=== PATIENT | male | born 1980 | race African-American/Black ===

== ENCOUNTER 2017-04-15 17:57 | Emergency (ER) | payer OTHER ==
[~2017-04-15] VITALS: Ht 177.8 cm; Wt 77.1 kg
--- NOTE | 2017-04-15 18:30 | NUR ---
PRESENTS TO ER C/O UNCONTROLLED BLOOD SUGAR AND PENILE ULCER. PATIENT IS A/OX 4. BREATHING EVEN AND UNLABORED. NO SOB. VITALS STABLE. SAFETY AND COMFORT MEASURES IN PLACE. UMESH Parson. INFORMED. BJ PANTOJA AT BEDSIDE FOR EVAL.
[2017-04-15] MEDS ORDERED: ONDANSETRON HCL/PF 4 MG/2 ML VIAL ONE (19:00)
[2017-04-15] MEDS ORDERED: HYDROMORPHONE 1 MG/1 ML DISP.SYRIN IV ONE (19:00)
[2017-04-15] MEDS ORDERED: IV NS 0.9% 1,000 ML BAG IV ONE (19:00)
[2017-04-15] MEDS ORDERED: ONDANSETRON HCL/PF 4 MG/2 ML VIAL IV ONE (19:00)
[2017-04-15] MEDS ORDERED: MORPHINE SULFATE INJ 4 MG/ML DISP.SYRIN ONE (19:01)
--- NOTE | 2017-04-15 19:05 | NUR ---
NEW IV STARTED ON LAC, 18 G. BLOOD DRAWN AND SENT TO LAB.
[2017-04-15 19:15] LABS: BASOPHILS % (AUTO) 0.1 % (0.0-2.0); EOSINOPHILS % (AUTO) 0.2 % (0.0-6.0); HEMATOCRIT 43 % (39-51); HEMOGLOBIN 14.7 g/dL (13.5-17.5); LYMPHOCYTES # (AUTO) 1.3 /CMM (0.8-4.8); LYMPHOCYTES % (AUTO) 13.5 % (20.0-44.0); MEAN CORPUSCULAR HEMOGLOBIN 31 PG (26.0-33.0); MEAN CORPUSCULAR HGB CONC 34 g/dl (31.0-36.0); MEAN CORPUSCULAR VOLUME 91 fL (80-96); MONOCYTES # (AUTO) 0.6 /CMM (0.1-1.30); MONOCYTES % (AUTO) 6.5 % (2.0-12.0); NEUTROPHILS # (AUTO) 7.6 /CMM (1.8-8.9); NEUTROPHILS % (AUTO) 79.7 % (43.0-81.0); PLATELET COUNT (AUTO) 259 /CMM (150-450); RDW COEFFICIENT OF VARIATION 11.5 (11.5-15.0); RED BLOOD CELL COUNT(AUTO) 4.71 MIL/uL (4.5-6.0); WHITE BLOOD COUNT (AUTO) 9.5 K/uL (4.3-11.0)
[2017-04-15] MEDS ORDERED: FENTANYL PF 100MCG/2ML AMPUL ONE (19:30)
[2017-04-15] MEDS ORDERED: MORPHINE SULFATE INJ 10 MG/ML DISP.SYRIN IV ONE (19:30)
[2017-04-15] MEDS ORDERED: FENTANYL PF 100MCG/2ML AMPUL IV ONE (19:30)
--- NOTE | 2017-04-15 19:33 | NUR ---
REPORT GIVEN TO DAMIEN DRISCOLL FOR ZENY.
--- NOTE | 2017-04-15 19:34 | NUR ---
REPORTED RECEIVED FROM SARKIS. DRISCOLL FOR ZENY.
[2017-04-15 19:35] LABS: ALBUMIN 3.7 g/dL (3.4-5.0); BILIRUBIN,DIRECT 0.1 mg/dL (0.0-0.2); BILIRUBIN,TOTAL 0.7 mg/dL (0.2-1.0); CALCIUM, SERUM 9.3 mg/dL (8.5-10.1); POTASSIUM 3.7 mmol/L (3.5-5.1); TOTAL PROTEIN, SERUM 7.7 g/dL (6.4-8.2)
[2017-04-15 20:21] LABS: APPEARANCE,URINE Clear (CLEAR); BILIRUBIN,URINE Negative (NEGATIVE); BLOOD, URINE Trace-intact Ery/uL (NEGATIVE); COLOR,URINE Yellow (YELLOW); KETONES,URINE 40 (NEGATIVE); LEUKOCYTE ESTERASE ,URINE Negative (NEGATIVE); NITRITE, URINE Negative (NEGATIVE); PH,URINE 5.5 (5.0-8.0); PROTEIN,URINE Negative (NEGATIVE); UGLUCOSE 500 MG/DL mg/dL (NEGATIVE); UROBILINOGEN,URINE 0.2 EU/dL (0.2)
[2017-04-15] MEDS ORDERED: CEFTRIAXONE 1 G in IV D5W 50 ML IV ONE (20:30)
[2017-04-15] MEDS ORDERED: SULFAMETH/TRIMETH 800/160 MG 1 UDTAB TABLET PO ONE ×2 (20:30→20:36)
[2017-04-15] MEDS ORDERED: INSULIN REGULAR, HUMAN 100 UNIT/ML 10 ML VIAL SQ ONE (20:30)
[2017-04-15 20:34] LABS: BACTERIA,URINE Rare /HPF (None Seen); SQUAMOUS EPITHELIAL CELL,UR Few /HPF (None Seen); WBC,URINE NONE SEEN /HPF (0-3)
[2017-04-15] MEDS ORDERED: CEFTRIAXONE 1GM BAG (ER ONLY) 50 ML IV ONE (20:35)
[2017-04-15] MEDS ORDERED: INSULIN REGULAR, HUMAN 100 UNIT/ML 10 ML VIAL ONE (20:36)
--- NOTE | 2017-04-15 22:04 | NUR ---
IV removed. Catheter intact and site benign. Pressure and 4x4 applied to site. No bleeding noted. Patient teaching administered on leg bag for urinary catheter. Patient to see urologist next week. Patient discharged to home in stable condition. Written and verbal after care instructions given. Patient verbalizes understanding of instruction. Patient ambulatory with a steady gait.
[2017-04-15 22:06] VITALS: BP 138/79
== END 2017-04-15 22:07 | disposition home or self-care (01) ==
LOC: EDBD → ER 18:03
DX: N47.6 Balanoposthitis (principal); N48.5 Ulcer of penis; E10.65 Type 1 diabetes mellitus with hyperglycemia; R82.4 Acetonuria; F17.200 Nicotine dependence, unspecified, uncomplicated
CPT/HCPCS: 36415; 80048; 80076; 81001; 82962; 83605; 85025; 87040 ×2; 96361; 96365; 96372; 96375; 99285; A4606; J0696 ×2; J1815; J2270; J2405; J3010; J7030; J7060; Z7610; 81000-TC

== ENCOUNTER 2017-04-19 08:38 | Emergency (ER) | payer OTHER ==
--- NOTE | 2017-04-19 08:50 | NUR ---
PT IS VERY RUDE WITH REGISTRATION STAFF AND TO ME. I WAS ABOUT TO WHEEL THE PATIENT TO ER, MY CHARGE NURSE CAME TO HELP ME AND THE PATIENT ASKED MY CHARGE NURSE TO PUSH THE WHEELCHAIR. THE PATIENT HAS A BACK PACK WITH HIM AND MY CHARGE NURSE ASKED HIM IF HE CAN CARRY HIS BAG. THE PATIENT RUDELY SAID "YOU WANT ME TO PUT MY BAG HERE? (POINTING TO HIS LAP) AND EXPOSED HIS PENIS WHILE IN THE HALLWAY. THE PATIENT TOLD TO COVER HIMSELF BUT STILL CONTINUE TO EXPOSE HIS PENIS. THE PATIENT IS REFUSING TO COOPERATE. SEXURITY WAS CALLED FOR ASSISTANCE.
== END 2017-04-19 09:07 | disposition left against medical advice (07) ==
LOC: ER 08:39
DX: Z53.21 Procedure and treatment not carried out due to patient leaving prior to being seen by health care provider (principal)

== ENCOUNTER 2020-04-13 09:13 | Emergency (ER) | payer OTHER ==
[~2020-04-13] VITALS: Ht 177.8 cm; Wt 68.0 kg
--- NOTE | 2020-04-13 09:37 | NUR ---
AMBULATORY TO ER. ROOMED. C/O EPIGASTRIC AREA PAIN W/ NAUSEA AND VOMITING X 3 DAYS. STABLE VITALS. NAD NOTED. AWAITING MD GRAFF.
--- NOTE | 2020-04-13 09:53 | NUR ---
DR NICOLE AT BEDSIDE FOR EVAL.
[2020-04-13] MEDS ORDERED: LORAZEPAM INJ 2 MG/ML VIAL IV ONE (10:00)
[2020-04-13] MEDS ORDERED: ONDANSETRON HCL/PF 4 MG/2 ML VIAL IVP ONE (10:00)
[2020-04-13] MEDS ORDERED: IV NS 0.9% 500 ML BAG IV ONE (10:00)
[2020-04-13] MEDS ORDERED: ONDANSETRON HCL/PF 4 MG/2 ML VIAL ONE ×2 (10:10→11:54)
[2020-04-13] MEDS ORDERED: LORAZEPAM INJ 2 MG/ML VIAL ONE (10:11)
[2020-04-13 10:57] LABS: BASOPHILS % (AUTO) 0.4 % (0.0-2.0); EOSINOPHILS % (AUTO) 0.1 % (0.0-6.0); HEMATOCRIT 43 % (39-51); HEMOGLOBIN 14.6 g/dL (13.5-17.5); LYMPHOCYTES # (AUTO) 1.7 /CMM (0.8-4.8); LYMPHOCYTES % (AUTO) 14.6 % (20.0-44.0); MEAN CORPUSCULAR HGB CONC 34 g/dl (31.0-36.0); MEAN CORPUSCULAR VOLUME 90 fL (80-96); MONOCYTES # (AUTO) 0.4 /CMM (0.1-1.30); MONOCYTES % (AUTO) 3.6 % (2.0-12.0); NEUTROPHILS # (AUTO) 9.2 /CMM (1.8-8.9); NEUTROPHILS % (AUTO) 81.3 % (43.0-81.0); PLATELET COUNT (AUTO) 302 /CMM (150-450); WHITE BLOOD COUNT (AUTO) 11.3 K/uL (4.3-11.0)
[2020-04-13 11:16] LABS: ALBUMIN 4.5 g/dL (3.4-5.0); BILIRUBIN,DIRECT 0.3 mg/dL (0.0-0.2); BILIRUBIN,TOTAL 1.3 mg/dL (0.2-1.0); CALCIUM, SERUM 9.5 mg/dL (8.5-10.1); CREATININE 1.2 mg/dL (0.6-1.3); TOTAL PROTEIN, SERUM 8.6 g/dL (6.4-8.2)
--- NOTE | 2020-04-13 12:00 | NUR ---
IV removed. Catheter intact and site benign. Pressure and 4x4 applied to site. No bleeding noted.
--- NOTE | 2020-04-13 12:03 | NUR ---
PATIENT A/OX4, BREATHING EVEN AND UNLABORED, NO SOB NOTED, Patient discharged to home in stable condition. Written and verbal after care instructions given. Patient verbalizes understanding of instruction.
[2020-04-13 12:11] VITALS: BP 130/76
[2020-04-13] MEDS ORDERED: ONDANSETRON HCL/PF 4 MG/2 ML VIAL IV ONE (12:30)
== END 2020-04-13 12:12 | disposition home or self-care (01) ==
LOC: ER 09:16
DX: R11.2 Nausea with vomiting, unspecified (principal); R19.7 Diarrhea, unspecified; R10.13 Epigastric pain; E11.9 Type 2 diabetes mellitus without complications
CPT/HCPCS: 36415; 80048; 80076; 83690; 85025; 96374; 96375; 96376; 99284; J2060; J2405 ×2; J7030

== ENCOUNTER 2021-05-09 05:30 | Emergency (ER) | payer MEDICAID ==
[~2021-05-09] VITALS: Ht 177.8 cm; Wt 79.4 kg
--- NOTE | 2021-05-09 06:54 | NUR ---
PT C/O BILATERAL FLANK PAIN, HEADACHE, N/V X 1 DAY. PT A/O X 3. AWAITING TO BE SEEN BY
[2021-05-09] MEDS ORDERED: ONDANSETRON HCL/PF 4 MG/2 ML VIAL ONE (06:58)
[2021-05-09] MEDS ORDERED: HYDROMORPHONE 1 MG/1 ML DISP.SYRIN ONE (06:58)
--- NOTE | 2021-05-09 06:59 | NUR ---
URINE COLLECTED AND SENT TO LAB
--- NOTE | 2021-05-09 06:59 | NUR ---
BLOOD COLLECTED AND SENT TO LAB
[2021-05-09] MEDS ORDERED: HYDROMORPHONE INJ 2 MG/ML DISP.SYRIN IV ONE (07:00)
[2021-05-09] MEDS ORDERED: ONDANSETRON HCL/PF 4 MG/2 ML VIAL IVP ONE (07:00)
[2021-05-09] MEDS ORDERED: IV NS 0.9% 1,000 ML BAG IV ONE (07:00)
--- NOTE | 2021-05-09 07:17 | NUR ---
PT OUT TO CT SCAN
--- NOTE | 2021-05-09 07:22 | NUR ---
PT BACK FROM CT
[2021-05-09 07:56] LABS: BILIRUBIN,URINE SMALL (NEGATIVE); COLOR,URINE DARK YELLOW (YELLOW); LEUKOCYTE ESTERASE ,URINE NEGATIVE (NEGATIVE); NITRITE, URINE NEGATIVE (NEGATIVE); PH,URINE 5.5 (5.0-8.0); PROTEIN,URINE 100 mg/dl (NEGATIVE); UGLUCOSE 250 MG/DL mg/dL (NEGATIVE); UROBILINOGEN,URINE 0.2 EU/dL (0.2)
[2021-05-09 08:02] LABS: BASOPHILS % (AUTO) 0.4 % (0.0-2.0); EOSINOPHILS % (AUTO) 0.3 % (0.0-6.0); HEMATOCRIT 39 % (39-51); HEMOGLOBIN 13.1 g/dL (13.5-17.5); LYMPHOCYTES # (AUTO) 0.9 K/uL (0.8-4.8); LYMPHOCYTES % (AUTO) 15.2 % (20.0-44.0); MEAN CORPUSCULAR HGB CONC 34 g/dl (31.0-36.0); MEAN CORPUSCULAR VOLUME 91 fL (80-96); MONOCYTES # (AUTO) 0.7 K/uL (0.1-1.30); MONOCYTES % (AUTO) 11.5 % (2.0-12.0); NEUTROPHILS # (AUTO) 4.3 K/uL (1.8-8.9); NEUTROPHILS % (AUTO) 72.6 % (43.0-81.0); PLATELET COUNT (AUTO) 216 K/uL (150-450); RED BLOOD CELL COUNT(AUTO) 4.25 MIL/uL (4.5-6.0); WHITE BLOOD COUNT (AUTO) 5.9 K/uL (4.3-11.0)
[2021-05-09 08:05] LABS: BACTERIA,URINE Few /HPF (None Seen); SQUAMOUS EPITHELIAL CELL,UR Few /HPF (None Seen)
[2021-05-09] MEDS ORDERED: ONDA4TAB5 PO (09:24)
[2021-05-09 09:37] VITALS: BP 122/71
--- NOTE | 2021-05-09 09:37 | NUR ---
IV removed. Catheter intact and site benign. Pressure and 4x4 applied to site. No bleeding noted. Patient discharged to home in stable condition. Written and verbal after care instructions given. Patient verbalizes understanding of instruction.
[2021-05-09 15:39] LABS: CALCIUM, SERUM 9.5 mg/dL (8.5-10.1); CREATININE 1.2 mg/dL (0.6-1.3); POTASSIUM 3.8 mmol/L (3.5-5.1)
[2021-05-09 15:43] LABS: ALBUMIN 4.4 g/dL (3.4-5.0); BILIRUBIN,DIRECT 0.2 mg/dL (0.0-0.2); BILIRUBIN,TOTAL 0.6 mg/dL (0.2-1.0); TOTAL PROTEIN, SERUM 8.4 g/dL (6.4-8.2)
== END 2021-05-09 09:38 | disposition home or self-care (01) ==
LOC: ER 05:31
DX: R10.84 Generalized abdominal pain (principal); K92.0 Hematemesis; E10.8 Type 1 diabetes mellitus with unspecified complications; F17.200 Nicotine dependence, unspecified, uncomplicated; Z79.4 Long term (current) use of insulin
CPT/HCPCS: 36415; 74176; 80048; 80076; 81001; 83690; 85025; 96361; 96374; 96375; 99284; J1170; J2405

== ENCOUNTER 2021-07-20 11:14 | Emergency (ER) | payer MEDICAID ==
[~2021-07-20] VITALS: Ht 177.8 cm; Wt 77.1 kg
[~2021-07-20 11:14] MED LIST: ONDA4TAB5 PO
--- NOTE | 2021-07-20 11:27 | NUR ---
CAME IN FOR NAUSEA AND VOMITNG THAT STARTED THIS MORNING 0800. DENIES ABDOMINAL PAIN. TO ER BED 6, HOOKED TO MONITOR, VSS. CHANGED TO HOSP GOWN, WARM BLANKET PROVIDED, PATIENT AAO x 4. BREATHING EVEN AND UNLABORED. DR RODRIGUEZ AT BEDSIDE
[2021-07-20] MEDS ORDERED: ONDANSETRON HCL/PF - ER 4 MG/2 ML VIAL IV ONE (11:30)
[2021-07-20] MEDS ORDERED: IV NS 0.9% 1,000 ML BAG IV ONE (11:30)
--- NOTE | 2021-07-20 11:30 | NUR ---
SEEN BY DR RODRIGUEZ AT BEDSIDE
[2021-07-20] MEDS ORDERED: ONDANSETRON HCL/PF 4 MG/2 ML VIAL ONE (11:32)
[2021-07-20 11:55] LABS: BASOPHILS # (AUTO) 0.1 K/uL (0.0-0.2); BASOPHILS % (AUTO) 0.5 % (0.0-2.0); EOSINOPHILS % (AUTO) 0.6 % (0.0-6.0); HEMATOCRIT 44 % (39-51); HEMOGLOBIN 14.7 g/dL (13.5-17.5); LYMPHOCYTES # (AUTO) 1.9 K/uL (0.8-4.8); LYMPHOCYTES % (AUTO) 13.5 % (20.0-44.0); MEAN CORPUSCULAR HGB CONC 33 g/dl (31.0-36.0); MEAN CORPUSCULAR VOLUME 93 fL (80-96); MONOCYTES # (AUTO) 0.3 K/uL (0.1-1.30); MONOCYTES % (AUTO) 2.2 % (2.0-12.0); NEUTROPHILS # (AUTO) 11.7 K/uL (1.8-8.9); NEUTROPHILS % (AUTO) 83.2 % (43.0-81.0); PLATELET COUNT (AUTO) 308 K/uL (150-450); RED BLOOD CELL COUNT(AUTO) 4.79 MIL/uL (4.5-6.0)
[2021-07-20 12:16] LABS: ALBUMIN 4.6 g/dL (3.4-5.0); BILIRUBIN,DIRECT 0.2 mg/dL (0.0-0.2); BILIRUBIN,TOTAL 0.8 mg/dL (0.2-1.0); CALCIUM, SERUM 10.2 mg/dL (8.5-10.1); CREATININE 1.4 mg/dL (0.6-1.3); POTASSIUM 4.7 mmol/L (3.5-5.1)
[2021-07-20] MEDS ORDERED: HALOPERIDOL LACTATE INJ 5 MG/ML VIAL ONE (12:24)
[2021-07-20] MEDS ORDERED: HALOPERIDOL LACTATE INJ 5 MG/ML VIAL IV ONE (12:30)
--- NOTE | 2021-07-20 12:44 | NUR ---
PATIENT IS FOR DISCHARGE BUT STILL DOESN'T FEEL OK. ASKED HIM TO LIE IN BED AND RELAX FOR FEW MINUTES PRIOR TO DISCHARGE.
--- NOTE | 2021-07-20 13:13 | NUR ---
IV removed. Catheter intact and site benign. Pressure and 4x4 applied to site. No bleeding noted.Patient discharged to home in stable condition. Written and verbal after care instructions given. Patient verbalizes understanding of instruction.
[2021-07-20 13:14] VITALS: BP 134/82
== END 2021-07-20 13:15 | disposition home or self-care (01) ==
LOC: ER 11:16
DX: K31.84 Gastroparesis (principal); E10.65 Type 1 diabetes mellitus with hyperglycemia; R11.2 Nausea with vomiting, unspecified; F17.200 Nicotine dependence, unspecified, uncomplicated; Z79.4 Long term (current) use of insulin; Z79.899 Other long term (current) drug therapy
CPT/HCPCS: 36415; 80048; 80076; 82962; 83690; 85025; 96361; 96374; 96375; 99284; J1630; J2405; J7030

== ENCOUNTER 2021-08-18 06:55 | Emergency (ER) | payer MEDICAID ==
[~2021-08-18] VITALS: Ht 177.8 cm; Wt 86.2 kg
[2021-08-18] MEDS ORDERED: ONDANSETRON HCL/PF 4 MG/2 ML VIAL IVP ONE (07:00)
[2021-08-18] MEDS ORDERED: IV NS 0.9% 1,000 ML BAG IV ONE (07:00)
[2021-08-18] MEDS ORDERED: ONDANSETRON HCL/PF 4 MG/2 ML VIAL ONE (07:00)
--- NOTE | 2021-08-18 07:05 | NUR ---
BIBSELF C/O NAUSEA AND VOMITING XHOURS. HX OF GASTROPARESIS DENIES ANY ABD PAIN. PATIENT ALERT AND ORIENTED X3. AMBULATORY WTIH NON LABORED BREATHING IN BED 02 SEEN BY MD AT TRIAGE.
--- NOTE | 2021-08-18 07:11 | NUR ---
LINE ESTABLISHED @LAC18G
--- NOTE | 2021-08-18 07:12 | NUR ---
BLOOD COLLECTED AND SENT TO LAB
--- NOTE | 2021-08-18 07:12 | NUR ---
URINE COLLECTED AND SENT TO LAB
[2021-08-18 07:20] LABS: BASOPHILS % (AUTO) 0.4 % (0.0-2.0); EOSINOPHILS % (AUTO) 0.9 % (0.0-6.0); HEMATOCRIT 40 % (39-51); HEMOGLOBIN 14.2 g/dL (13.5-17.5); LYMPHOCYTES # (AUTO) 1.8 K/uL (0.8-4.8); LYMPHOCYTES % (AUTO) 21.9 % (20.0-44.0); MEAN CORPUSCULAR HGB CONC 35 g/dl (31.0-36.0); MEAN CORPUSCULAR VOLUME 91 fL (80-96); MONOCYTES # (AUTO) 0.4 K/uL (0.1-1.30); MONOCYTES % (AUTO) 5.1 % (2.0-12.0); NEUTROPHILS # (AUTO) 5.8 K/uL (1.8-8.9); NEUTROPHILS % (AUTO) 71.7 % (43.0-81.0); PLATELET COUNT (AUTO) 266 K/uL (150-450); RED BLOOD CELL COUNT(AUTO) 4.43 MIL/uL (4.5-6.0); WHITE BLOOD COUNT (AUTO) 8.1 K/uL (4.3-11.0)
[2021-08-18] MEDS ORDERED: ONDA8TAB13 PO (07:23)
[2021-08-18 07:30] LABS: CALCIUM, SERUM 9.8 mg/dL (8.5-10.1); CREATININE 1.3 mg/dL (0.6-1.3); POTASSIUM 5.2 mmol/L (3.5-5.1)
[2021-08-18 07:36] LABS: BILIRUBIN,URINE NEGATIVE (NEGATIVE); COLOR,URINE YELLOW (YELLOW); LEUKOCYTE ESTERASE ,URINE NEGATIVE (NEGATIVE); NITRITE, URINE NEGATIVE (NEGATIVE); PROTEIN,URINE 30 mg/dl (NEGATIVE); UGLUCOSE 500 MG/DL mg/dL (NEGATIVE); UROBILINOGEN,URINE 0.2 EU/dL (0.2)
[2021-08-18 07:44] LABS: ALBUMIN 4.5 g/dL (3.4-5.0); BILIRUBIN,DIRECT 0.2 mg/dL (0.0-0.2); BILIRUBIN,TOTAL 0.9 mg/dL (0.2-1.0); TOTAL PROTEIN, SERUM 8.6 g/dL (6.4-8.2)
[2021-08-18 08:00] LABS: WBC,URINE 0-2 /HPF (0-3)
[2021-08-18 08:01] LABS: BACTERIA,URINE Rare /HPF (None Seen); SQUAMOUS EPITHELIAL CELL,UR 0-2 /HPF (None Seen)
[2021-08-18] MEDS ORDERED: METOCLOPRAMIDE HCL 10 MG/2 ML VIAL ONE (08:55)
[2021-08-18] MEDS ORDERED: METOCLOPRAMIDE HCL 10 MG/2 ML VIAL IV ONE (09:00)
[2021-08-18] MEDS ORDERED: diphenhydrAMINE HCL 50 MG/ML VIAL IV ONE (09:00)
[2021-08-18] MEDS ORDERED: IV NS 0.9% 1,000 ML IV ONE (09:00)
[2021-08-18] MEDS ORDERED: diphenhydrAMINE HCL 50 MG/ML VIAL ONE (09:00)
[2021-08-18] MEDS ORDERED: FAMO-131 PO (09:46)
--- NOTE | 2021-08-18 10:22 | NUR ---
Patient discharged to home in stable condition. Written and verbal after care instructions given. Patient verbalizes understanding of instruction.IV removed. Catheter intact and site benign. Pressure and 4x4 applied to site. No bleeding noted.
[2021-08-18 10:41] VITALS: BP 122/84
== END 2021-08-18 10:41 | disposition home or self-care (01) ==
LOC: ER 06:55
DX: E10.65 Type 1 diabetes mellitus with hyperglycemia (principal); E10.43 Type 1 diabetes mellitus with diabetic autonomic (poly)neuropathy; K31.84 Gastroparesis; R11.2 Nausea with vomiting, unspecified; Z79.4 Long term (current) use of insulin; Z87.19 Personal history of other diseases of the digestive system; Z79.899 Other long term (current) drug therapy
CPT/HCPCS: 36415; 80048; 80076; 81001; 82962; 83690; 85025; 96361; 96374; 96375; 99284; J1200; J2405; J2765; J7030 ×2

== ENCOUNTER 2021-11-24 10:12 | Emergency (ER) | payer MEDICAID ==
[~2021-11-24] VITALS: Ht 177.8 cm; Wt 83.9 kg
[~2021-11-24 10:12] MED LIST changes: +FAMO-131 PO; -ONDA4TAB5 PO; +ONDA8TAB13 PO
--- NOTE | 2021-11-24 10:25 | NUR ---
pt self presents to ed c/o feeling nauseated since this morning. denies abdominal pain. pt is dm type 1 woke up around 6am and his blood sugar was around 400. he does have insulin he does have an insulin pump and his latest read was within normal range. placed on monitor vss. awaiting md rios.
--- NOTE | 2021-11-24 10:31 | NUR ---
dr gonzalez at bedside for eval.
[2021-11-24] MEDS ORDERED: ONDANSETRON HCL/PF 4 MG/2 ML VIAL ONE (10:34)
--- NOTE | 2021-11-24 10:39 | NUR ---
iv line started blood drawn and sent to lab.
[2021-11-24] MEDS ORDERED: ONDANSETRON HCL/PF - ER 4 MG/2 ML VIAL IV ONE (11:00)
[2021-11-24] MEDS ORDERED: IV NS 0.9% 1,000 ML IV ONE (11:00)
[2021-11-24 11:03] LABS: CALCIUM, SERUM 9.2 mg/dL (8.5-10.1); POTASSIUM 4.3 mmol/L (3.5-5.1)
[2021-11-24 11:09] LABS: ALBUMIN 4.1 g/dL (3.4-5.0); BILIRUBIN,TOTAL 0.7 mg/dL (0.2-1.0); TOTAL PROTEIN, SERUM 8.1 g/dL (6.4-8.2)
[2021-11-24 11:10] LABS: BASOPHILS % (AUTO) 0.5 % (0.0-2.0); EOSINOPHILS % (AUTO) 1.1 % (0.0-6.0); HEMATOCRIT 40 % (39-51); HEMOGLOBIN 13.5 g/dL (13.5-17.5); LYMPHOCYTES # (AUTO) 1.1 K/uL (0.8-4.8); LYMPHOCYTES % (AUTO) 16.9 % (20.0-44.0); MEAN CORPUSCULAR HGB CONC 34 g/dl (31.0-36.0); MEAN CORPUSCULAR VOLUME 90 fL (80-96); MONOCYTES # (AUTO) 0.4 K/uL (0.1-1.30); NEUTROPHILS # (AUTO) 4.9 K/uL (1.8-8.9); NEUTROPHILS % (AUTO) 75.5 % (43.0-81.0); PLATELET COUNT (AUTO) 248 K/uL (150-450); RED BLOOD CELL COUNT(AUTO) 4.46 MIL/uL (4.5-6.0); WHITE BLOOD COUNT (AUTO) 6.6 K/uL (4.3-11.0)
[2021-11-24] MEDS ORDERED: METOCLOPRAMIDE HCL 10 MG/2 ML VIAL ONE (11:57)
[2021-11-24] MEDS ORDERED: METOCLOPRAMIDE HCL 10 MG/2 ML VIAL IV ONE (12:00)
[2021-11-24] MEDS ORDERED: ONDA4TAB11 PO (12:20)
[2021-11-24] MEDS ORDERED: METO-295 PO (12:20)
[2021-11-24 12:25] VITALS: BP 120/82
== END 2021-11-24 12:25 | disposition home or self-care (01) ==
LOC: ER 11:13
DX: R11.2 Nausea with vomiting, unspecified (principal); E11.40 Type 2 diabetes mellitus with diabetic neuropathy, unspecified; F17.200 Nicotine dependence, unspecified, uncomplicated; Z60.2 Problems related to living alone; Z79.899 Other long term (current) drug therapy
CPT/HCPCS: 99284; 96374; 96361; 96375; 85025; 83690; 36415; 80053; J2765; J2405 ×2; J7030

== ENCOUNTER 2022-07-18 12:55 | Emergency (ER) | payer MEDICAID ==
[~2022-07-18] VITALS: Ht 177.8 cm; Wt 81.6 kg
[~2022-07-18 12:55] MED LIST changes: +METO-295 PO; +ONDA4TAB11 PO
[2022-07-18] MEDS ORDERED: IV NS 0.9% 1,000 ML BAG IV ONE (13:30)
[2022-07-18] MEDS ORDERED: ONDANSETRON HCL/PF 4 MG/2 ML VIAL IVP ONE (13:30)
--- NOTE | 2022-07-18 13:32 | NUR ---
PT IN BED 6 A/O X4 TOLORATING ROOM AIR. C/O N/V FOR 2 AND DIAHREA FOR 3 DAYS. ALLERGY TO SHELLFISH. Hx OF DM1 PRESENTS WITH INSULINE PUMP. IN BED LOW FOWLERS BED LOCKED AND IN LOWEST POSTION.
[2022-07-18] MEDS ORDERED: ONDANSETRON HCL/PF 4 MG/2 ML VIAL ONE (13:36)
--- NOTE | 2022-07-18 13:59 | NUR ---
URINE COLLECTED AND SENT TO LAB
--- NOTE | 2022-07-18 13:59 | NUR ---
LAC 20G STARTED BLOOD DRAWN AND SENT TO LAB
[2022-07-18 14:11] LABS: BASOPHILS % (AUTO) 0.2 % (0.0-2.0); EOSINOPHILS % (AUTO) 0.3 % (0.0-6.0); HEMATOCRIT 40 % (39-51); HEMOGLOBIN 13.2 g/dL (13.5-17.5); LYMPHOCYTES # (AUTO) 0.2 K/uL (0.8-4.8); LYMPHOCYTES % (AUTO) 2.1 % (20.0-44.0); MEAN CORPUSCULAR HGB CONC 33 g/dl (31.0-36.0); MEAN CORPUSCULAR VOLUME 92 fL (80-96); MONOCYTES # (AUTO) 0.6 K/uL (0.1-1.30); MONOCYTES % (AUTO) 5.7 % (2.0-12.0); NEUTROPHILS % (AUTO) 91.7 % (43.0-81.0); PLATELET COUNT (AUTO) 273 K/uL (150-450); RED BLOOD CELL COUNT(AUTO) 4.32 MIL/uL (4.5-6.0)
[2022-07-18 14:19] LABS: BILIRUBIN,URINE 1+ (NEGATIVE); COLOR,URINE DARK YELLOW (YELLOW); LEUKOCYTE ESTERASE ,URINE NEGATIVE (NEGATIVE); NITRITE, URINE NEGATIVE (NEGATIVE); PROTEIN,URINE NEGATIVE (NEGATIVE); UGLUCOSE 2+ mg/dL (NEGATIVE); UROBILINOGEN,URINE 0.2 EU/dL (0.2)
[2022-07-18 14:36] LABS: RBC,URINE 0-2 /HPF (0-2)
[2022-07-18 14:38] LABS: BACTERIA,URINE None seen /HPF (None Seen); SQUAMOUS EPITHELIAL CELL,UR Rare /HPF (None Seen); WBC,URINE 0-2 /HPF (0-3)
[2022-07-18 14:44] LABS: CALCIUM, SERUM 9.3 mg/dL (8.5-10.1); CREATININE 1.2 mg/dL (0.6-1.3); POTASSIUM 4.3 mmol/L (3.5-5.1)
[2022-07-18 14:51] LABS: ALBUMIN 4.5 g/dL (3.4-5.0); BILIRUBIN,DIRECT 0.3 mg/dL (0.0-0.2); BILIRUBIN,TOTAL 1.3 mg/dL (0.2-1.0); TOTAL PROTEIN, SERUM 8.6 g/dL (6.4-8.2)
[2022-07-18] MEDS ORDERED: ONDA4TAB11 PO (15:04)
[2022-07-18 15:23] VITALS: BP 124/75
== END 2022-07-18 15:10 | disposition home or self-care (01) ==
LOC: ER 13:07
DX: R11.2 Nausea with vomiting, unspecified (principal); R19.7 Diarrhea, unspecified; E10.9 Type 1 diabetes mellitus without complications; F17.200 Nicotine dependence, unspecified, uncomplicated; Z60.2 Problems related to living alone; Z79.899 Other long term (current) drug therapy
CPT/HCPCS: 99283; 96374; 96361; 85025; 80048; 83690; 80076; 81001; 36415; J2405; J7030

== ENCOUNTER 2023-11-26 15:42 | Emergency (ER) | payer MEDICAID ==
[~2023-11-26] VITALS: Ht 177.8 cm; Wt 86.2 kg
[2023-11-26] MEDS ORDERED: LIDOCAINE 1%-EPI 1:100,000 20 ML VIAL ONE (16:02)
[2023-11-26] MEDS ORDERED: oxyCODONE/APAP (5/325 MG) 1 UDTAB TABLET ONE (16:19)
[2023-11-26] MEDS: oxyCODONE/APAP (5/325 MG) 1 UDTAB TABLET PO ONE (16:20)
[2023-11-26] MEDS ORDERED: CEPH500T PO (17:01)
[2023-11-26] MEDS ORDERED: SULF1TAB48 PO (17:01)
[2023-11-26] MEDS ORDERED: TYL2T PO (17:01)
[2023-11-26] MEDS ORDERED: CYCL5TAB PO (17:33)
[2023-11-26] MEDS: CEFAZOLIN 2 GM in IV D5W 100 ML IV ONE (17:37)
[2023-11-26 19:49] VITALS: BP 123/72; TEMP 98; O2SAT 100
== END 2023-11-26 19:50 | disposition home or self-care (01) ==
LOC: ER 15:42
DX: S52.691A Other fracture of lower end of right ulna, initial encounter for closed fracture (principal); E11.40 Type 2 diabetes mellitus with diabetic neuropathy, unspecified; E11.43 Type 2 diabetes mellitus with diabetic autonomic (poly)neuropathy; K31.84 Gastroparesis; R51.9 Headache, unspecified; F17.200 Nicotine dependence, unspecified, uncomplicated; Z79.1 Long term (current) use of non-steroidal anti-inflammatories (NSAID); Z79.899 Other long term (current) drug therapy; Z60.2 Problems related to living alone; V89.0XXA Person injured in unspecified motor-vehicle accident, nontraffic, initial encounter; Y93.89 Activity, other specified; Y92.89 Other specified places as the place of occurrence of the external cause; Y99.8 Other external cause status
CPT/HCPCS: 99285; 72125; 96365; 12002; 73090; 70450; J0690; J7060; A6403; J3490; A4223

== ENCOUNTER 2023-12-02 15:56 | Emergency (ER) | payer MEDICAID ==
[~2023-12-02] VITALS: Ht 175.3 cm; Wt 82.1 kg
[~2023-12-02 15:56] MED LIST changes: +CEPH500T PO; +CYCL5TAB PO; +SULF1TAB48 PO; +TYL2T PO
[2023-12-02 16:39] VITALS: BP 134/69; TEMP 97.9; O2SAT 100
== END 2023-12-02 17:41 | disposition home or self-care (01) ==
LOC: ER 16:14
DX: S52.201D Unspecified fracture of shaft of right ulna, subsequent encounter for closed fracture with routine healing (principal); E11.40 Type 2 diabetes mellitus with diabetic neuropathy, unspecified; F17.200 Nicotine dependence, unspecified, uncomplicated; Z87.19 Personal history of other diseases of the digestive system; Z60.2 Problems related to living alone; V43.52XD Car driver injured in collision with other type car in traffic accident, subsequent encounter
CPT/HCPCS: 29125; 99283; A6403

== ENCOUNTER 2023-12-06 15:30 | Emergency (ER) | payer MEDICAID ==
[~2023-12-06] VITALS: Ht 175.3 cm; Wt 82.1 kg
[2023-12-06 15:58] VITALS: BP 129/78; TEMP 98.3; O2SAT 98
== END 2023-12-06 18:43 | disposition home or self-care (01) ==
LOC: ER 15:35
DX: S51.811D Laceration without foreign body of right forearm, subsequent encounter (principal); E11.40 Type 2 diabetes mellitus with diabetic neuropathy, unspecified; F17.200 Nicotine dependence, unspecified, uncomplicated; Z87.19 Personal history of other diseases of the digestive system; Z60.2 Problems related to living alone; X58.XXXD Exposure to other specified factors, subsequent encounter

== ENCOUNTER 2024-01-05 05:25 | Emergency (ER) | payer MEDICAID ==
[~2024-01-05] VITALS: Ht 177.8 cm; Wt 81.6 kg
[2024-01-05] MEDS ORDERED: ONDANSETRON HCL/PF 4 MG/2 ML VIAL ONE (06:00)
[2024-01-05] MEDS ORDERED: INSULIN REGULAR, HUMAN 100 UNIT/ML 10 ML VIAL ONE (06:03)
[2024-01-05] MEDS: ONDANSETRON HCL/PF 4 MG/2 ML VIAL IVP ONE (06:09)
[2024-01-05] MEDS: IV NS 0.9% 1,000 ML BAG IV ONE ×2 (06:09→06:14)
[2024-01-05] MEDS: INSULIN REGULAR, HUMAN 100 UNIT/ML 10 ML VIAL IV ONE (06:10)
[2024-01-05 06:17] LABS: SITE, VBG LEFT BRACHIAL; VBG BASE EXCESS -5.5 mmol/L (-2.0-3.0); VBG COHb 0.2 % (0.5-1.5); VBG HCO3 17.7 mmol/L (22.0-29.0); VBG MetHb 0.4 % (0.5-1.5); VBG OXYGEN SATURATION 60.4 % (60.0-85.0); VBG PH 7.404 (7.320-7.430); VBG PO2 34.8 mmHg (23.0-48.0); VBG TOTAL HEMOGLOBIN 14.5 G/dL (13.5-17.5)
[2024-01-05 06:19] LABS: BASOPHILS % (AUTO) 0.3 % (0.0-2.0); EOSINOPHILS # (AUTO) 0.1 K/uL (0.0-0.7); EOSINOPHILS % (AUTO) 0.8 % (0.0-6.0); HEMATOCRIT 41 % (39-51); HEMOGLOBIN 13.7 g/dL (13.5-17.5); LYMPHOCYTES # (AUTO) 2.7 K/uL (0.8-4.8); LYMPHOCYTES % (AUTO) 22.4 % (20.0-44.0); MEAN CORPUSCULAR HEMOGLOBIN 30 PG (26.0-33.0); MEAN CORPUSCULAR HGB CONC 34 g/dl (31.0-36.0); MEAN CORPUSCULAR VOLUME 90 fL (80-96); MONOCYTES # (AUTO) 0.5 K/uL (0.1-1.30); NEUTROPHILS # (AUTO) 8.6 K/uL (1.8-8.9); NEUTROPHILS % (AUTO) 72.5 % (43.0-81.0); PLATELET COUNT (AUTO) 328 K/uL (150-450); RED BLOOD CELL COUNT(AUTO) 4.54 MIL/uL (4.5-6.0); RED CELL DISTRIBUTION WIDTH 13.4 % (11.5-15.0); WHITE BLOOD COUNT (AUTO) 11.9 K/uL (4.3-11.0)
[2024-01-05] MEDS ORDERED: HALOPERIDOL LACTATE INJ 5 MG/ML VIAL ONE (06:19)
[2024-01-05] MEDS: HALOPERIDOL LACTATE INJ 5 MG/ML VIAL IM ONE (06:23)
[2024-01-05] MEDS: ONDANSETRON HCL/PF - ER 4 MG/2 ML VIAL IV ONE (06:28)
[2024-01-05] MEDS: PANTOPRAZOLE 40 MG VIAL IV ONE (06:29)
[2024-01-05 06:31] LABS: INR 1.01 (0.91-1.10); PARTIAL THROMBOPLASTIN TIME 22.3 SEC (24.3-34.3); PROTHROMBIN TIME 10.7 SECS (9.2-11.1)
[2024-01-05 06:32] LABS: ALBUMIN 4.6 g/dL (3.4-5.0); BILIRUBIN,DIRECT 0.5 mg/dL (0.0-0.2); BILIRUBIN,TOTAL 1.7 mg/dL (0.2-1.0); CALCIUM, SERUM 10.1 mg/dL (8.5-10.1); CREATININE 1.6 mg/dL (0.6-1.3); POTASSIUM 4.4 mmol/L (3.5-5.1); TOTAL PROTEIN, SERUM 8.8 g/dL (6.4-8.2)
[2024-01-05 07:52] VITALS: BP 129/77; TEMP 98; O2SAT 99
== END 2024-01-05 07:54 | disposition left against medical advice (07) ==
LOC: ER 05:37
DX: E10.10 Type 1 diabetes mellitus with ketoacidosis without coma (principal); N17.9 Acute kidney failure, unspecified; R11.2 Nausea with vomiting, unspecified; R07.89 Other chest pain; E10.40 Type 1 diabetes mellitus with diabetic neuropathy, unspecified; F17.200 Nicotine dependence, unspecified, uncomplicated; Z87.19 Personal history of other diseases of the digestive system; Z60.2 Problems related to living alone
CPT/HCPCS: 99285; 96372; 96374; 96361; 96375; 93005; 82803 ×2; 71045; 85025; 80048; 82010; 83690; 80076; 36415; 85730; 82962 ×2; 80320; J1630; J1815; J2405 ×2; J7030; G0480

== ENCOUNTER 2024-02-22 10:57 | Emergency (ER) | payer MEDICAID ==
[~2024-02-22] VITALS: Ht 177.8 cm; Wt 81.6 kg
[2024-02-22] MEDS: IV NS 0.9% 1,000 ML BAG IV ONE (11:30)
[2024-02-22] MEDS ORDERED: ONDANSETRON HCL/PF 4 MG/2 ML VIAL ONE (11:34)
[2024-02-22] MEDS: ONDANSETRON HCL/PF 4 MG/2 ML VIAL IVP ONE (11:35)
[2024-02-22 11:39] LABS: BASOPHILS % (AUTO) 0.4 % (0.0-2.0); EOSINOPHILS # (AUTO) 0.1 K/uL (0.0-0.7); EOSINOPHILS % (AUTO) 0.7 % (0.0-6.0); HEMATOCRIT 39 % (39-51); LYMPHOCYTES # (AUTO) 0.8 K/uL (0.8-4.8); LYMPHOCYTES % (AUTO) 9.1 % (20.0-44.0); MEAN CORPUSCULAR HEMOGLOBIN 30 PG (26.0-33.0); MEAN CORPUSCULAR HGB CONC 34 g/dl (31.0-36.0); MEAN CORPUSCULAR VOLUME 90 fL (80-96); MONOCYTES # (AUTO) 0.4 K/uL (0.1-1.30); MONOCYTES % (AUTO) 5.1 % (2.0-12.0); NEUTROPHILS # (AUTO) 7.3 K/uL (1.8-8.9); NEUTROPHILS % (AUTO) 84.7 % (43.0-81.0); PLATELET COUNT (AUTO) 245 K/uL (150-450); RED BLOOD CELL COUNT(AUTO) 4.29 MIL/uL (4.5-6.0); WHITE BLOOD COUNT (AUTO) 8.6 K/uL (4.3-11.0)
[2024-02-22 11:47] LABS: APPEARANCE,URINE CLEAR (CLEAR); BILIRUBIN,URINE NEGATIVE (NEGATIVE); BLOOD, URINE TRACE-INTA Ery/uL (NEGATIVE); COLOR,URINE YELLOW (YELLOW); KETONES,URINE 3+ mg/dL (NEGATIVE); LEUKOCYTE ESTERASE ,URINE NEGATIVE (NEGATIVE); NITRITE, URINE NEGATIVE (NEGATIVE); PROTEIN,URINE NEGATIVE (NEGATIVE); UGLUCOSE 2+ mg/dL (NEGATIVE)
[2024-02-22 11:49] LABS: CALCIUM, SERUM 9.5 mg/dL (8.5-10.1); CREATININE 1.1 mg/dL (0.6-1.3)
[2024-02-22 11:54] LABS: ALBUMIN 4.2 g/dL (3.4-5.0); BILIRUBIN,DIRECT 0.3 mg/dL (0.0-0.2); BILIRUBIN,TOTAL 0.8 mg/dL (0.2-1.0); TOTAL PROTEIN, SERUM 8.2 g/dL (6.4-8.2)
[2024-02-22 11:55] LABS: SITE, VBG VBG - N/A; VBG BASE EXCESS -1.2 mmol/L (-2.0-3.0); VBG COHb 0.2 % (0.5-1.5); VBG HCO3 23.7 mmol/L (22.0-29.0); VBG MetHb 0.3 % (0.5-1.5); VBG O2Hb 56.3 % (0-79); VBG OXYGEN SATURATION 56.6 % (60.0-85.0); VBG PCO2 40.3 mmHg (38.0-54.0); VBG PH 7.387 (7.320-7.430); VBG PO2 30.9 mmHg (23.0-48.0); VBG TOTAL HEMOGLOBIN 14.1 G/dL (13.5-17.5)
[2024-02-22] MEDS: INSULIN REGULAR, HUMAN 100 UNIT/ML 10 ML VIAL IV ONE (12:00)
[2024-02-22 12:05] LABS: ADD URINE CULTURE NO; BACTERIA,URINE Rare /HPF (None Seen); SQUAMOUS EPITHELIAL CELL,UR Rare /HPF (None Seen)
[2024-02-22] MEDS ORDERED: INSULIN REGULAR, HUMAN 100 UNIT/ML 10 ML VIAL ONE (12:06)
[2024-02-22] MEDS ORDERED: ONDA4TAB5 PO (14:18)
[2024-02-22 14:24] VITALS: BP 128/77; TEMP 98.2; O2SAT 100
== END 2024-02-22 14:25 | disposition home or self-care (01) ==
LOC: ER 11:21
DX: E10.65 Type 1 diabetes mellitus with hyperglycemia (principal); R10.9 Unspecified abdominal pain; R11.2 Nausea with vomiting, unspecified; F17.200 Nicotine dependence, unspecified, uncomplicated; Z79.4 Long term (current) use of insulin; Z60.2 Problems related to living alone
CPT/HCPCS: 99285; 96374; 71045; 96361; 96375; 93005; 82803; 85025; 80048; 82010; 83690; 80076; 81001; 36415; 82962 ×2; J1815; J2405; J7030 ×2